=== PATIENT | male | born 1975 | race Caucasian/White ===

== ENCOUNTER 2020-03-24 02:45 | Emergency (ER) | payer OTHER, BC, SELFPAY ==
--- NOTE | 2020-03-24 05:33 | ED.DCSUM_ITS ---
- ER Visit Summary Date of Service: 03/24/20 Chief Complaint: Lip laceration History of Present Illness: The patient is a 45 M presenting with lip laceration. This occurred just prior to arrival at work. He states he was putting a metal wire into a machine and it snapped back and the wire hit him in the mouth. His last tetanus is unknown. He had bleeding from inside his mouth and his upper lip. Denies loss of consciousness. He is not on anticoagulants. Denies other injuries. Physical Examination: Vitals are stable. Patient is afebrile. Alert no acute distress. HEENT exam 0.5 cm upper lip laceration. Laceration does not cross the vermil[place] border. It is not through and through. He has a contusion to the upper gum. No bleeding inside mouth. Teeth are stable. Midface stable. Neck is nontender Lungs are clear and equal bilaterally. Heart is regular rate and rhythm. Extremities are unremarkable. Skin is warm and dry. No focal neurologic deficit. Remainder of exam is unremarkable. Emergency Department Course and Treatment: Patient was given tetanus IM. LET was applied. 1, 5-0 Vicryl suture was placed in upper lip. Patient was advised wound care instructions. Advised to follow up with corporate [facility]. Advised return to ED if worsening complaints. Disposition: Discharge home Impression: Lip laceration, laceration repair This note was generated with [employer] dictation software. It may contain incorrect words, spelling, and punctuation that were not noted in review of the chart prior to signing ED Disposition - Plan for ED Patient: Disposition: Home or Assisted Living Referrals: Wesley Perez MD [Primary Care Provider] -
== END 2020-03-24 03:40 | disposition home or self-care (01) ==
LOC: ED 05:29
PROVIDERS: Emergency Provider Emergency Medicine; PCP Family Medicine
DX: S01.511A Laceration without foreign body of lip, initial encounter (principal); W26.8XXA Contact with other sharp object(s), not elsewhere classified, initial encounter
CPT/HCPCS: 12011; 90471; 90715; 99283